=== PATIENT | female | born 1950 ===

== ENCOUNTER 2020-02-26 11:40 | Outpatient (CLI) | payer MEDICARE ==
[2020-02-29 10:13] LABS: INR 1.66 (0.87-1.13)
== END 2020-02-26 11:41 | disposition home or self-care (01) ==
LOC: LABHHL 11:40
PROVIDERS: ATTEND Family Medicine
DX: I48.91 Unspecified atrial fibrillation (principal); L03.90 Cellulitis, unspecified; G81.11 Spastic hemiplegia affecting right dominant side
CPT/HCPCS: 36415; 85610